=== PATIENT | male | born 2000 | race Caucasian/White ===

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

== ENCOUNTER 2021-06-30 17:43 | Emergency (ER) | payer OTHER, SELFPAY | END 2021-06-30 18:53 | disposition home or self-care (01) | LOC: BURERS 17:43 | DX: S43.401A Unspecified sprain of right shoulder joint, initial encounter (principal); F17.220 Nicotine dependence, chewing tobacco, uncomplicated; Z79.899 Other long term (current) drug therapy; W18.2XXA Fall in (into) shower or empty bathtub, initial encounter ==